=== PATIENT | female | born 1930 | race Caucasian/White ===

== ENCOUNTER → 2018-10-16 | Outpatient (CLI) | payer OTHER, BC ==
[~2018-10-16] MED LIST: AMLODIPINE BESYL5 MG PO; ASPIRIN EC81 M1 PO; BYSTOLIC10 MG PO; CARVEDILOL12.5 MG PO; CATAPRESS3 TP; CLONIDINE0.1 PO; COREG PO; COZAAR 50 MG TA50 M1 PO; CYMBALTA60 MG PO; DIOVAN320 MG PO; HYDROCODON-ACE1 EACH PO; IBUPROFEN 800800 MG PO; MOBIC7.5 MG PO; NABUMETONE 500500 M1 PO; NABUMETONE 750750 M1 PO; NORCO 5-325 TA1 EACH PO; PRAVACHOL40 MG PO; UNKNOWN BP MED; VITAMIN D1000 UNI1 PO
== END ==
LOC: RAD 12:43
DX: M16.12 Unilateral primary osteoarthritis, left hip (principal); M25.752 Osteophyte, left hip; G89.29 Other chronic pain; Z88.8 Allergy status to other drugs, medicaments and biological substances